=== PATIENT | male | born 1945 | race Caucasian/White ===

== ENCOUNTER 2017-07-10 16:13 | Inpatient (IN) | payer OTHER, MEDICARE ==
[~2017-07-10] VITALS: Ht 182.9 cm; Wt 68.0 kg
[~2017-07-10 16:13] MED LIST: CLONAZEPAM1 MG PO; COZAAR 50MG TAB50 MG PO; GLIPIZIDE ER5 M1 PO; LANTUS100 U/ML SC; LIDODERM 5% PAT1 PAT TOP; LIPITOR40 M1 PO; MELOXICAM15 MG PO; METFORMIN HCL500 MG PO; MIRALAX17 GM PO; MIRTAZAPINE15 MG PO; MORPHINE SULFAT45 MG PO; NEURONTIN300 MG PO; NICODERM C7 MG/24 HR PO; NORVASC 5MG TAB5 MG PO; NOVOLOG100 U/ML SC; OMEPRAZOLE20 M2 PO; PANCRELIPASE PO; PRAZOSIN HYDROCH2 MG PO; REQUIP 0.5MG0.5 M1 PO; TEARS NATURALE15 ML OP; TOPROL XL50 MG PO; TRAZODONE HCL150 M1 PO
--- NOTE | 2017-07-10 17:10 | ED GENERAL ADULT ---
History of Present Illness General Chief Complaint: ETOH/Drug Related Complaint Stated Complaint: BIBA FOR DETOX Source: patient, old records, EMS Exam Limitations: poor historian, RELUCTANT HISTORIAN Vital Signs & Intake/Output Vital Signs & Intake/Output Vital Signs Date Time Temp Pulse Resp B/P B/P Pulse O2 O2 Flow FiO2 Mean Ox Delivery Rate 07/11 0818 98.0 07/11 0810 98.0 126 24 132/92 95 Nasal 2.0L Cannula 07/11 0800 98.0 126 24 132/92 07/11 0329 83 16 98 Nasal 2.0L Cannula 07/10 2307 97.4 108 20 133/88 99 Nasal 2.0L Cannula 07/10 1950 119/62 07/10 1924 20 98 Nasal 2.0L Cannula 07/10 1920 97.9 137 22 147/79 87 Room Air 07/10 1618 96.2 124 16 159/93 93 Room Air ED Intake and Output 07/11 0000 07/10 1200 Intake Total 240 Output Total Balance 240 Intake, Oral 240 Patient 150 lb Weight Weight Estimated Measurement Method Reconcile Medications Amylase/Lipase/Protease (Pancrelipase 20,000 94537 [id number] U-53459 U) (Unknown Strength) ECC 15,000 PO AC PANCREATITIS (Reported) 15,000 EC ON W10 Atorvastatin Calcium (Lipitor) 40 MG TABLET 1 TAB PO 5PM CHOLESTEROL ( Reported) Clonazepam 1 MG TABLET 1 TAB PO BID ANXIETY (Reported) Dextran/Hypromellose (Tears Naturale 15 Ml) 15 ML SAMMI 1 DRP OP 4 TIMES/DAY EYE (Reported) Gabapentin (Neurontin) 300 MG CAP 1 CAP PO QPM UNKNOWN (Reported) Glipizide 5 MG TABLET 1 TAB PO DAILY DIABETES (Reported) Lidocaine HCl (Lidoderm Patch) 5 % PAT 1 PAT TOP DAILY PAIN (Reported) may wear up to 12 hours Meloxicam 15 MG TABLET 1 TAB PO DAILY NSAID (Reported) Metformin Hydrochloride (Metformin HCl) 500 MG TAB 2 TAB PO DAILY DIABETES ( Reported) Mirtazapine 15 MG TABLET 1 TAB PO QPM SLEEP (Reported) Morphine Sulfate (Morphine Sulfate ER) 45 MG CPMP.24HR 1 TAB PO Q8 PAIN ( Reported) Nicotine (Nicoderm Cq) 7 MG/24 HR TDM 1 PAT PO DAILY SMOKING (Reported) Omeprazole 20 MG CAPSULE.DR 1 CAP PO DAILY GI (Reported) Polyethylene Glycol 3350 (Miralax) 17 GRAM/DOSE POWDER 17 GM PO DAILY CONSTIPATION (Reported) mix with water, juice, soda, coffee or tea Ropinirole Hydrochloride (Requip 0.5MG) 0.5 MG TABLET 1 TAB PO QPM RESTLESS LEG SYNDROME (Reported) TRAZODONE HCL (Trazodone HCl) 50 MG TABLET 1 TAB PO QPM DEPRESSION (Reported) RESTART IF THE BLOOD PRESSURE IS NORMAL Triage Note: biba from home for ?withdrawal from oxycodone and klonopin. pt prescribed both for pain and PTSD. ran out of both prescriptions and not able to refill until tuesday07/13/2017. per EMS pt reprots drinking a pint of 5 dollar alcohol prior to arrival. strong smell of etoh on pt's breath. pt awake with slurred speech. NAD. abrasion that has scabbed over noted to R knee. no other injuries noted. awaiting provider eval. Triage Nurses Notes Reviewed? yes HPI: Patient presents for evaluation of possible withdrawal. The patient himself is an extremely poor historian and is unable to provide coherent history. He does complain of left knee pain and thoughts of self-harm. When asked why he felt that way he states that one of his buddies did. It is unclear if this is a recent event or related to [place]. When asked why he came to the emergency department the patient stated "I don't know". He asked me to speak with his . (Mahnaz COFFMAN,Jorje Cherry) Allergies Coded Allergies: Iodinated Contrast- Oral and IV Dye (UNKNOWN 07/11/17) diphenhydramine (UNKNOWN 07/11/17) (Mani Villalta MD) Past History Travel History Traveled to [place] past 21 day No Medical History Any Pertinent Medical History? see below for history History of MRSA: No History of VRE: No History of CDIFF: No Surgical History Surgical History: non-contributory Psychosocial History Who do you live with Spouse Services at Home None What is your primary language Slovenian Tobacco Use: Current Daily Use Daily Tobacco Use Amount/Type: => 5 Cigarettes daily Family History Family History, If Any: FATHER MOTHER FH: diabetes mellitus Hx Contributory? No (Mahnaz COFFMAN,Jorje Cherry) Review of Systems Review of Systems Constitutional: Reports: no symptoms. EENTM: Reports: no symptoms. Respiratory: Reports: no symptoms. Cardiovascular: Reports: no symptoms. GI: Reports: no symptoms. Genitourinary: Reports: no symptoms. Musculoskeletal: Reports: see HPI. Skin: Reports: no symptoms. Neurological/Psychological: Reports: no symptoms. Hematologic/Endocrine: Reports: no symptoms. Immunologic/Allergic: Reports: no symptoms. All Other Systems: Reviewed and Negative (Mahnaz COFFMAN,Jorje Cherry) Physical Exam Physical Exam General Appearance: SEE BELOW Comments: Gen.: Well-nourished, well-developed, no acute respiratory distress. Generally cooperative but prone to angry outbursts. Head: Normocephalic, atraumatic. Eyes: Normal inspection bilaterally Ears: Normal inspection bilaterally Nose: Normal inspection Throat/mouth : Moist mucosa Neck: Supple, full range of motion, no goiter Heart: Regular rate and rhythm, no murmurs rubs or gallops Lungs: Clear to auscultation bilaterally with normal air entry Chest: Nontender, no signs of trauma Back: Normal range of motion Abdomen: Soft, nontender, nondistended, normal bowel sounds, no signs of trauma Extremities: Normal range of motion grossly, equal radial pulses, no cyanosis clubbing or edema, abrasions. To the right knee and otherwise small scattered abrasions of lower extremities without ecchymoses soft tissue swelling or other signs of trauma. Neurologic: Cranial nerves grossly intact, speech is dysarthric Skin: warm and dry Psychiatric: Calm, cooperative, no apparent delusions or hallucinations but patient's train of thought is difficult to follow Core Measures ACS in differential dx? No CVA/TIA Diagnosis: No Sepsis Present: No Sepsis Focused Exam Completed? No (Mahnaz COFFMAN,Jorje Cherry) Progress Differential Diagnoses I considered the following diagnoses in my evaluation of the patient: Trauma, intoxication, electrolyte abnormality, dehydration, hypoglycemia, Korsakoff's psychosis Plan of Care: Orders Procedure Date/time Status Regular Diet 07/11 B Active BASIC METABOLIC PANEL 07/11 0919 Active CIWA 07/11 0757 Active ED CRISIS PSYCH CONSULT 07/11 0537 Active Add-on Test (ER Only) 07/11 0525 Active Patient Safety Monitor 07/10 1932 Active TSH REFLEX 07/10 1722 Complete TOTAL TRIODOTHYROXINE 07/10 1722 Complete FREE T4 07/10 172 Complete Saline Lock 04/15 1710 Active URINE DRUG SCREEN FOR ER ONLY 07/10 1709 Complete URINALYSIS 07/10 1709 Complete TROPONIN LEVEL 07/10 1709 Complete ETHANOL 07/10 1709 Complete COMPREHENSIVE METABOLIC PANEL 07/10 1709 Complete CBC WITHOUT DIFFERENTIAL 07/10 1709 Complete EKG 07/10 1709 Active Current Medications Sig/Shawna Start time Last Medication Dose Stop Time Status Admin Gabapentin 300 MG QPM 07/10 230 UNVr 07/10 (Neurontin) 230 Mirtazapine 15 MG QPM 07/10 230 UNVr 07/10 (Remeron) 230 Trazodone HCl 50 MG QPM 07/10 230 UNVr 07/10 (Desyrel) 230 Clonazepam 1 MG BID 07/11 2251 UNVr 07/10 (Klonopin 1MG Tab) 07/17 2250 230 Laboratory Tests 07/11/17 0600: TSH &T3 &Free T4 Intrp Cancelled 07/10/178: Urine Opiates Screen 379, Methadone Screen 63, Barbiturate Screen < 60, Ur Phencyclidine Scrn < 6.00, Amphetamines Screen < 100, U Benzodiazepines Scrn 144 , Urine Cocaine Screen < 50, Urine Cannabis Screen 5.90, Urine Color YEL, Urine Clarity CLEAR, Urine pH 6.0, Ur Specific [place] 1.015, Urine Protein 30 H, Urine Ketones TRACE H, Urine Nitrite NEG, Urine Bilirubin NEG, Urine Urobilinogen 0.2, Ur Leukocyte Esterase NEG, Ur Microscopic SEDIMENT EXAMINED, Urine RBC RARE, Urine WBC 5-10 H, Ur Epithelial Cells RARE, Hyaline Casts FEW H, Granular Casts RARE H, Urine Mucus FEW, Urine Hemoglobin NEG, Urine Glucose NEG 07/10/17 172: Anion Gap 23 H, Estimated GFR > 60, BUN/Creatinine Ratio 8.8, Glucose 121 H, Calcium 10.1, Total Bilirubin 0.5, AST 48, ALT 37, Alkaline Phosphatase 77, Troponin I 0.02, Total Protein 7.9, Albumin 4.7, Globulin 3.2, Albumin/Globulin Ratio 1.5, Free T4 1.25, Total T3 0.88 L, TSH &T3 &Free T4 Intrp 0.178 L, CBC w Diff NO MAN DIFF REQ, RBC 5.23, MCV 91.4, MCH 30.1, MCHC 32.9 L, RDW 13.8, MPV 8.3, Gran % 67.8, Lymphocytes % 26.3, Monocytes % 4.1, Eosinophils % 1.4, Basophils % 0.4, Absolute Granulocytes 5.2, Absolute Lymphocytes 2.0, Absolute Monocytes 0.3, Absolute Eosinophils 0.1, Absolute Basophils 0, Serum Alcohol 372.0 Initial ED EKG: SINUS TACHYCARDIA WITH A HEART RATE OF 123 AND 2 pvcS, NONSPECIFIC st SEGMENT CHANGES LIKELY RELATED TO RATE. Prior EKG: changed (PRIOR ekg ESSENTIALLY NORMAL) Comments: 07/10/2017 7:18:13 PM patient signed out to Dr. Villalta at shift price changer. 07/10/2017 7:29:13 PM Patient's has presented to the emergency department and states that the patient has run out of his pain medications and was seen at the [facility] but could not be provided any additional medication because he has a history of medication abuse. He began drinking as a results of the lack of medications (he suffers from chronic leg and back pain). Although Prasanna's tries her best to manage his medications he does manage to get to them from time to time and take them INappropriately. I will advise Dr. Villalta of this new information. (Mahnaz COFFMAN,Jorje Cherry) Hand-Off Endorsed To: Jorje Alves DO Endorsed Time: 0700 Pending: consult, other (CIWA) (Ambar COFFMAN,Mani) Differential Diagnoses I considered the following diagnoses in my evaluation of the patient: (Jorje Alves DO) Departure Departure Disposition: STILL A PATIENT Condition: Stable Referrals: Shamar Trejo MD (PCP/Family) Departure Forms: Customer Survey General Discharge Information (Jorje Joya MD) Departure Clinical Impression Primary Impression: Alcohol intoxication Qualifiers: Complication of substance-induced condition: uncomplicated Qualified Code: F10.920 - Alcohol use, unspecified with intoxication, uncomplicated Secondary Impressions: Alcohol dependence with withdrawal, Chronic pain, Depression with suicidal ideation Comments 07/11/17 The patient was signed out to me by . He is pending evaluation by crisis. Admission Note Spoke With: Tracy Vasquez MD Documentation of Exam: Documentation of any treatments & extenuating circumstances including Concerns Regarding Discharge (functional status, medication knowledge or non-compliance, living conditions, etc.) that warrant an admission rather than observation: [The patient needs admission for Ativan protocol, crisis consultation] Patient CIWA score is 14 after he received benzodiazepines. He is severely tremulous. He also has an acute medical condition requiring further care and that he has an elevated anion gap and electrolyte derangement. (Jorje Alvse DO) Critical Care Note Critical Care Note Critical Care Time: non-applicable (Mahnaz COFFMAN,Jorje Cherry)
[2017-07-10 17:35] LABS: ABSOLUTE BASOPHIL COUNT 0 /CUMM (0.0-0.2); ABSOLUTE EOSINOPHIL COUNT 0.1 /CUMM (0.0-0.7); ABSOLUTE GRANULOCYTE CT 5.2 /CUMM (1.4-6.5); ABSOLUTE MONOCYTE COUNT 0.3 /CUMM (0.10-0.60); BASOPHIL % 0.4 % (0.0-2.0); EOSINOPHIL % 1.4 % (0-5); GRANULOCYTE % 67.8 % (42.2-75.2); HEMATOCRIT 47.8 % (42-52); MEAN CORPUSCULAR HGB 30.1 PG (27.0-31.0); MEAN CORPUSCULAR HGB CONC 32.9 G/DL (33.0-37.0); MEAN CORPUSCULAR VOLUME 91.4 FL (80.0-94.0); MEAN PLATELET VOLUME 8.3 FL (7.4-10.4); PLATELET COUNT 142 /CUMM (130-400); RBC DISTRIBUTION WIDTH 13.8 % (11.5-14.5); RED BLOOD CELL CT 5.23 /CUMM (4.70-6.10); WHITE BLOOD CELL COUNT 7.7 /CUMM (4.8-10.8)
--- NOTE | 2017-07-10 18:24 | RADIOLOGY REPORT ---
EXAMINATION: XR PORTABLE CHEST CLINICAL INFORMATION: Aspiration. COMPARISON: Chest x-ray 04/07/2014 TECHNIQUE: Portable frontal view of the chest was obtained. 6:02 PM FINDINGS: The right lung base is not included in the study. There is emphysematous hyperlucency of lungs. There is no acute infiltrate. No pulmonary vascular congestion. The cardiac and the mediastinal contours are normal. There are vascular wall calcifications of the thoracic aortic arch. IMPRESSION: No acute abnormality of the chest.
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
[2017-07-11 08:00] VITALS: BP 132/92
[2017-07-11 10:00] VITALS: BP 134/88
--- NOTE | 2017-07-11 10:04 | History & Physical ---
Joya COFFMAN,[facility] 07/11/17 1003: General Information and HPI MD Statement: I have seen and personally examined ANTHONY DA SILVA and documented this H&P. The patient is a 72 year old M who presented with a patient stated chief complaint of Chornic Pain. Source of Information: patient, family, old records Exam Limitations: no limitations, clinical condition History of Present Illness: Mr Da Silva is a 72-year-old male with past medical history of hypertension, bipolar disorder, posttraumatic stress disorder (normally treated in [place] hospital ), status post left hip girdlestone procedure myocardial infarction, chronic pancreatitis, is brought in by ambulance on 07/10/2017 after being prompted by his to be brought in following an acute binge drinking episode. Some of the clinical history was obtained from the patient's Chelsey. It was reported by patient's that he did run out of his medications for anxiety and pain. The [facility] was not in a position to refil medications prior to and so the patient began drinking alcohol for pain relief. States that he had approximately 3 pints of madhav over the course of the weekend. During the time of our clinical interaction the patient was alert and oriented 3. He was able to provide some details of his admission however was unable to articulate the reason why he came to [facility].. States that since his run out of pain medications he's continued to feel pain in his left hip area. Described as a 10 out of 10 in severity. Described as dull, sharp, throbbing and piercing pain. States that pain only responded well to by mouth oxycodone medications which he was taking 20 mg 3 times a day. Patient denied any fever, chills or vomiting. Did endorse some nausea but no vomiting. He denied any abdominal pain or abdominal discomfort. Did state that he has not had a bowel movement in a few days. Denied any dysuria. Allergies/Medications Allergies: Coded Allergies: Iodinated Contrast- Oral and IV Dye (UNKNOWN 07/11/17) diphenhydramine (UNKNOWN 07/11/17) Home Med list Amylase/Lipase/Protease (Pancrelipase 20,000 64722 U-22040 U-55309 U) (Unknown Strength) ECC 15,000 PO AC PANCREATITIS (Reported) 15,000 EC ON W10 Atorvastatin Calcium (Lipitor) 40 MG TABLET 1 TAB PO 5PM CHOLESTEROL ( Reported) Clonazepam 1 MG TABLET 1 TAB PO BID ANXIETY (Reported) Dextran/Hypromellose (Tears Naturale 15 Ml) 15 ML SAMMI 1 DRP OP 4 TIMES/DAY EYE (Reported) Glipizide 5 MG TABLET 1 TAB PO DAILY DIABETES (Reported) Lidocaine HCl (Lidoderm Patch) 5 % PAT 1 PAT TOP DAILY PAIN (Reported) may wear up to 12 hours Meloxicam 15 MG TABLET 1 TAB PO DAILY NSAID (Reported) Metformin Hydrochloride (Metformin HCl) 500 MG TAB 2 TAB PO DAILY DIABETES ( Reported) Nicotine (Nicoderm Cq) 7 MG/24 HR TDM 1 PAT PO DAILY SMOKING (Reported) Omeprazole 20 MG CAPSULE.DR 1 CAP PO DAILY GI (Reported) Polyethylene Glycol 3350 (Miralax) 17 GRAM/DOSE POWDER 17 GM PO DAILY CONSTIPATION (Reported) mix with water, juice, soda, coffee or tea Ropinirole Hydrochloride (Requip 0.5MG) 0.5 MG TABLET 1 TAB PO QPM RESTLESS LEG SYNDROME (Reported) Trazodone HCl 150 MG TABLET 1 TAB PO QPM PRN Sleep (Reported) Can take up to 150 mg Compliance With Home Meds: POOR Past History Travel History Traveled to [place] past 21 day No Medical History History of MRSA: No History of VRE: No History of CDIFF: No Isolation History: Standard Surgical History Surgical History: non-contributory Past Family/Social History Family History Relations & Conditions if any FATHER MOTHER FH: diabetes mellitus Psychosocial History Services at Home: None Review of Systems Review of Systems Constitutional: Reports: see HPI. Exam & Diagnostic Data Last 24 Hrs of Vital Signs/I&O Vital Signs Date Time Temp Pulse Resp B/P B/P Pulse O2 O2 Flow FiO2 Mean Ox Delivery Rate 07/11 1220 98.4 134 22 154/76 92 Room Air 07/11 1000 97.8 102 20 134/88 07/11 0930 97.8 102 20 134/88 96 Nasal 2.0L Cannula 07/11 0818 98.0 07/11 0810 98.0 126 24 132/92 95 Nasal 2.0L Cannula 07/11 0800 98.0 126 24 132/92 07/11 0329 83 16 98 Nasal 2.0L Cannula 07/10 2307 97.4 108 20 133/88 99 Nasal 2.0L Cannula 07/10 1951 119/62 04/15 1925 20 98 Nasal 2.0L Cannula 07/10 1920 97.9 137 22 147/79 87 Room Air 07/10 1618 96.2 124 16 159/93 93 Room Air Intake & Output 07/11 1600 07/11 0800 07/11 0000 Intake Total 240 Output Total Balance 240 Intake, Oral 240 Patient 68.039 kg Weight Weight Estimated Measurement Method Physical Exam General Appearance Alert, Oriented X3, Cooperative, Dry mucous membranes Skin Temp/Moisture Exam: Warm/Dry Sepsis Skin Exam (color): Normal for Ethnicity HEENT Atraumatic, PERRLA, EOMI Neck Supple Cardiovascular Regular Rate, Normal S1, Normal S2 Lungs Clear to Auscultation Abdomen Normal Bowel Sounds, Soft, Tenderess noted with deep palpation. No rebound. Neurological Normal Gait, Normal Speech, Cranial Nerves 3-12 NL, Limited movement in Left lower Extremity. RLE: 5/5. Extremities No Clubbing, No Cyanosis, No Edema Vascular Normal Pulses Last 24 Hrs of Labs/Ayaz: Laboratory Tests 07/11/17 1100: Anion Gap 15, Estimated GFR > 60, BUN/Creatinine Ratio 16.3, Glucose 90, Calcium 9.0, Magnesium 1.4 L 07/11/17 0600: TSH &T3 &Free T4 Intrp Cancelled 07/10/178: Urine Opiates Screen 379, Methadone Screen 63, Barbiturate Screen < 60, Ur Phencyclidine Scrn < 6.00, Amphetamines Screen < 100, U Benzodiazepines Scrn 144 , Urine Cocaine Screen < 50, Urine Cannabis Screen 5.90, Urine Color YEL, Urine Clarity CLEAR, Urine pH 6.0, Ur Specific [place] 1.015, Urine Protein 30 H, Urine Ketones TRACE H, Urine Nitrite NEG, Urine Bilirubin NEG, Urine Urobilinogen 0.2, Ur Leukocyte Esterase NEG, Ur Microscopic SEDIMENT EXAMINED, Urine RBC RARE, Urine WBC 5-10 H, Ur Epithelial Cells RARE, Hyaline Casts FEW H, Granular Casts RARE H, Urine Mucus FEW, Urine Hemoglobin NEG, Urine Glucose NEG 07/10/17 1722: Anion Gap 23 H, Estimated GFR > 60, BUN/Creatinine Ratio 8.8, Glucose 121 H, Calcium 10.1, Total Bilirubin 0.5, AST 48, ALT 37, Alkaline Phosphatase 77, Troponin I 0.02, Total Protein 7.9, Albumin 4.7, Globulin 3.2, Albumin/Globulin Ratio 1.5, Free T4 1.25, Total T3 0.88 L, TSH &T3 &Free T4 Intrp 0.178 L, CBC w Diff NO MAN DIFF REQ, RBC 5.23, MCV 91.4, MCH 30.1, MCHC 32.9 L, RDW 13.8, MPV 8.3, Gran % 67.8, Lymphocytes % 26.3, Monocytes % 4.1, Eosinophils % 1.4, Basophils % 0.4, Absolute Granulocytes 5.2, Absolute Lymphocytes 2.0, Absolute Monocytes 0.3, Absolute Eosinophils 0.1, Absolute Basophils 0, Serum Alcohol 372.0 Assessment/Plan Assessment: Mr Da Silva is a 72-year-old male with past medical history of hypertension, bipolar disorder, posttraumatic stress disorder treated in [facility], status post left hip partial hip replacement in July 2013 and total hip replacement surgery in January 2009, myocardial infarction, chronic pancreatitis, is brought in by ambulance on 07/10/2017 after being prompted by his to be brought in following an acute binge drinking episode. Alcohol level was 372. Following initial stabilization at the emergency department he will subsequently be admitted to the Gen. medical service for the following problems. #Acute alcohol withdrawal. #History of diabetes #History of PTSD. #History of anxiety. #History of chronic pain. #Generalized deconditioning. #Constipation Admit the patient to general medicine. CIWA as per protocol. Last CIWA 14 Begin by mouth Ativan 2 mg every 6. Taper down not to exceed 20% in a 24 hour period, if CIWA lower and Vital signs stable. Maintain aspiration precautions. Finger sticks TID/HS at bedtime. NovoLog sliding scale. If sugars remain uncontrolled will may consider addition of Levemir. HB1AC Monitor BEP and CBC. Consider psych consultation in a.m. Consider PT consultation in a.m (althougth patient is wheelchair-bound he is able to transfer weight with the use of walker.) Bowel regimen with senna. Obtain records from [facility]. DVT prophylaxis with Lovenox. MVI/Thiamine/Vit D Patient is a full code. As Ranked By This Provider Problem List: 1. Alcohol dependence with withdrawal 2. Chronic pain 3. HTN (hypertension) 4. Anxiety Core Measures/Misc (12/12) Acute Coronary Syndrome ACS Diagnosis: No Congestive Heart Failure Congestive Heart Failure Diagnosis No Cerebrovascular Accident CVA/TIA Diagnosis: No VTE (View Protocol) VTE Risk Factors Age>40 No Mechanical VTE Prophylaxis d/t N/A MechProphylax Ordered No VTE Pharm Prophylaxis d/t NA PharmProphylax ordered Sepsis (View protocol) Sepsis Present: No Keven Machado MD 07/11/17 2778: Attending MD Review Statement Attending Statement Attending MD Statement: examined this patient, discuss w/resident/PA/ORNAMENTAL IRONWORKING SUPERVISOR, agreed w/resident/PA/ORNAMENTAL IRONWORKING SUPERVISOR, reviewed EMR data (avail), reviewed images, amended to note Attending Assessment/Plan: The patient is a 72 yo male with h/o HTN, bipolar disorder, PTSD (seen at [place]- ? Dr. Sherman), CAD (h/o MT), chronic pancreatitis, h/o left hip fx, chronic pain ( previously seen at [place] in [place]) who presented in the [facility] on 07/10 after acute drinking binge at urging of his . The patient had been on chronic benzo (Klonopin) [facility] and he had run out of these. stated his drinking had increased after he ran out of meds. He stated that they would no longer prescribe meds for him as they wanted him to go into rehab. 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 He describes pain in his left hip area, however has had diffuse pain. He denied any fever, chills, or abdominal pain (some nausea). He had been taking oxycodone 20 mg tid. Physical Exam: VS: T 98.4, P 102-134, R 22, BP 154/76, PO 92% HEENT: eyes- PERRLA, EOMI christine- dry mucosa w/o lesions Neck: no JVD or bruits. Chest: clear Cor: tachy, reg, nl S1, S2 w/o murm Abd Bs_, soft, NT, - HSM Ext: no edema, pulses good and sensory intact. Neuro: alert & oriented x 2, non-focal exam, + tremor. Labs/Tests- as above. Impression/Plan: #Alcohol Dependence and Withdrawal/DT's- patient with BAL 372 on presentation. Is on chronic Klonopin therapy at home, however [facility]. Plan: Admit to general medicine. CIWA/Ativan/MVI/thiamine/vit D. Social Service/Psych consults. #Bipolar/Depression/PTSD/Anxiety- patient is followed at [facility]. Plan: [facility] Psych consult here. Continue Trazodone & Remeron. #H/O Chronic Pain- has not been able to see pain specialist at [place] recently per patient. Plan: The patient was advised we will get information [facility]. Continue Gabapentin and use Tramadol as strongest pain med. Lidoderm Patch. #Benzo Dependence- the patient has been on Klonopin 1 mg bid x long time. Plan: Continue Klonopin and will speak with [facility]. #DM2- on Glipizide. Plan; Check glucoscans and sliding scale insulin.
[2017-07-11 12:20] VITALS: BP 154/76
[2017-07-11 16:00] VITALS: BP 154/76
--- NOTE | 2017-07-11 18:18 | Admission Certification ---
Admission Certification Certification Statement - As attending physician, I certify that at the time of - admission, based on clinical presentation, severity of - symptoms, need for further diagnostic testing and - therapeutic interventions, and risk of adverse outcomes - without in-hospital treatment, in my clinical assessment, - this patient requires an acute hospital stay for a minimum - of two nights or longer. I have also considered psychsocial - factors such as support system, advanced age, financial - issues, cognitive issues, and failed out-patient treatments, - past re-admission history, safety of patient, and lack of - compliance as applicable. Specific rationale supporting this admission is: The patient presented with acute intoxication and needs admission for alcohol and benzo withdrawal. Needs po/IV Ativan, MVI, thiamine, etc. [facility] health and social care teacher and psych consultation (addiction, PTSD, etc.).
[2017-07-11 20:00] VITALS: BP 160/74
[2017-07-11 21:42] VITALS: BP 158/98
[2017-07-12 06:50] VITALS: BP 162/86
--- NOTE | 2017-07-12 07:35 | PN- Housestaff ---
See Addendum Subjective Follow-up For: Alcohol withdrawal Chronic pain Subjective: The patient was seen and examined. He moaning in pain asking for opiates only. Refusing Ativan which is scheduled for his alcohol withdrawal. Per , he took his oxycodone more often than what was originally prescribed therefore ran out of this medication at home. He is agitated, trying to move out of his bed, asking for opioids. Upon clinical evaluation, he does not seem to be in opioid withdrawal. He was started on his [employer]UE[employer] oxycodone 20 mg 3 times a day earlier today. Received extra 5 mg as he was in severe pain. He is tachycardic and mildly hypertensive. Review of Systems Constitutional: Denies: chills, diaphoresis, fever, malaise, weakness, unexplained weight loss. Objective Last 24 Hrs of Vital Signs/I&O Vital Signs Date Time Temp Pulse Resp B/P B/P Pulse O2 O2 Flow FiO2 Mean Ox Delivery Rate 07/12 0650 98.2 99 20 162/86 93 Room Air 07/11 2142 98.2 112 20 158/98 94 Room Air 07/11 2000 98.1 114 18 160/74 07/11 1600 97.6 88 22 154/76 07/11 1220 98.4 134 22 154/76 92 Room Air Intake & Output 07/12 1600 07/12 0800 07/12 0000 Intake Total 940 1350 Output Total 300 200 Balance 640 1150 Intake, IV 700 210 Intake, Oral 240 1140 Output, Urine 300 200 Physical Exam General Appearance: Moderate Distress Other Physical Findings: HEENT Atraumatic, PERRLA, EOMI Neck Supple Cardiovascular Regular Rate, Normal S1, Normal S2 Lungs Clear to Auscultation Abdomen Normal Bowel Sounds, Soft, Tenderess noted with deep palpation. No rebound. Neurological Normal Speech Extremities No Clubbing, No Cyanosis, No Edema Vascular Normal Pulses Current Medications: Current Medications Sig/Shawna Start time Last Medication Dose Route Stop Time Status Admin Atorvastatin Calcium 40 MG 5PM 07/11 1700 AC 07/11 PO 1730 Clonazepam 1 MG BID 07/10 2252 DC 07/11 PO 07/17 225 1000 Enoxaparin Sodium 40 MG DAILY@1300 07/11 1300 AC 07/11 SC 1730 Gabapentin 300 MG QPM 07/10 2300 DC 07/10 PO 2305 Insulin Aspart 0 AT BEDTIME 07/11 2100 AC SC Insulin Aspart 0 TIDAC 07/11 1700 AC 07/12 SC 0747 Lidocaine 1 PAT Q24H 07/12 1900 AC EXT Lidocaine 1 PAT DAILY 07/11 1630 DC 07/11 EXT 1846 Lorazepam 2 MG Q8 07/12 1400 AC PO Lorazepam 2 MG Q6 07/11 1200 DC 07/12 PO 0629 Lorazepam 0 Q1P PRN 07/11 1200 AC 07/11 IV 1608 Magnesium Sulfate 1 GM Q2H 07/11 1330 DC 07/11 Dextrose/Water 100 ML IV 07/11 1729 1903 Morphine Sulfate 2 MG Q4-6 PRN PRN 07/11 1630 DC 07/11 IV 1938 Morphine Sulfate 2 MG ONCE ONE 07/11 1600 DC 07/11 IV 07/11 1601 1729 Morphine Sulfate 2 MG Q6P PRN 07/11 1200 DC 07/11 IV 1559 Nicotine 7 MG DAILY 07/12 1051 AC TOP Omeprazole 20 MG DAILY AC 07/11 1046 AC 07/12 PO 0629 Oxycodone HCl 10 MG ONCE ONE 07/12 1115 DC 07/12 PO 07/12 1116 1118 Oxycodone HCl 20 MG TID PRN 07/12 1047 AC PO Oxycodone HCl 10 MG TID PRN 07/12 1030 DC 07/12 PO 1031 Oxycodone/ 1 TAB ONCE ONE 07/12 0745 DC 07/12 Acetaminophen PO 07/12 0746 0737 Oxycodone/ 1 TAB ONCE ONE 07/11 2115 DC 07/11 Acetaminophen PO 07/12 2115 2139 Trazodone HCl 100 MG ONCE ONE 07/11 2115 DC 07/11 PO 07/12 2115 2139 Trazodone HCl 50 MG QPM 07/11 2100 AC 07/11 PO 2028 Last 24 Hrs of Lab/Ayaz Results Last 24 Hrs of Labs/Mics: Laboratory Tests 07/12/17 0755: Anion Gap 11, Estimated GFR > 60, BUN/Creatinine Ratio 21.7, CBC w Diff NO MAN DIFF REQ, RBC 4.48 L, MCV 90.3, MCH 31.0, MCHC 34.4, RDW 13.1, MPV 9.0, Gran % 62.3, Lymphocytes % 22.9, Monocytes % 8.0, Eosinophils % 5.9 H, Basophils % 0.9 , Absolute Granulocytes 3.1, Absolute Lymphocytes 1.2, Absolute Monocytes 0.4, Absolute Eosinophils 0.3, Absolute Basophils 0 Assessment/Plan Assessment: This is a 72-year-old male past medical history significant for PTSD, bipolar disorder, hypertension, CAD, chronic pain, chronic pancreatitis, history of left fracture, to the hospital following binge drinking episode. Problem list/plan: #Alcohol withdrawal/dependence: #Agitation/unsafe ambulation: pain medications #H/O Chronic Pain: mg, stating he is in severe pain all over his body medications as an outpatient. For now given his severe pain will increase back up to the original days of 20 mg 4 times a day. #DM: #DVT prophylaxis: Subcutaneous Lovenox #CODE STATUS: Full Problem List: 1. Alcohol dependence with withdrawal 2. Bipolar disorder 3. Chronic pain Pain Ratin Pain Location: all over Pain Goal: Pain 4 or less Pain Plan: Increased pain med regimen Tomorrow's Labs & Rationales: CBC to monitor H&H BEP to monitor electrolytes
[2017-07-12 09:02] LABS: ABSOLUTE EOSINOPHIL COUNT 0.3 /CUMM (0.0-0.7); ABSOLUTE MONOCYTE COUNT 0.4 /CUMM (0.10-0.60); EOSINOPHIL % 5.9 % (0-5)
[2017-07-12 09:25] LABS: ABSOLUTE BASOPHIL COUNT 0 /CUMM (0.0-0.2); ABSOLUTE GRANULOCYTE CT 3.1 /CUMM (1.4-6.5); ABSOLUTE LYMPH COUNT 1.2 /CUMM (1.2-3.4); BASOPHIL % 0.9 % (0.0-2.0); GRANULOCYTE % 62.3 % (42.2-75.2); MEAN CORPUSCULAR HGB CONC 34.4 G/DL (33.0-37.0); MEAN CORPUSCULAR VOLUME 90.3 FL (80.0-94.0); PLATELET COUNT 106 /CUMM (130-400); RBC DISTRIBUTION WIDTH 13.1 % (11.5-14.5); RED BLOOD CELL CT 4.48 /CUMM (4.70-6.10)
[2017-07-12 09:28] LABS: HEMATOCRIT 40.4 % (42-52)
--- NOTE | 2017-07-12 11:12 | Cons- Psychiatry ---
Psychiatric Consult Date of Consult: 07/12/17 Reason for Consult: "ETOH" Reformulated as please assist with medication management History of Present Illness: 72 y.o. , domiciled male [place] from home with CC of withdrawal from opioids and benzodiazepines, and some concern for alcohol withdrawal. Per the triage note and H&P, the patient was unable to fill his oxycontin and clonazepam prescriptions at [facility], and started to drink alcohol last week to relieve pain and anxiety. He has a history of alcohol dependence and had stopped some time ago and had been abstinent for 5 years, per his report. The patient was seen in OPS/IOP in 1999 for PTSD, rule out panic d/o with agoraphobia, and for rule out antisocial P.D. He was hospitalized on [facility] inpatient psychiatry in June, for an unknown reason; the records have been purged. Allergies: Coded Allergies: Iodinated Contrast- Oral and IV Dye (UNKNOWN 07/11/17) diphenhydramine (UNKNOWN 07/11/17) Current Medications: Current Medications Sig/Shawna Start time Last Medication Dose Route Stop Time Status Admin Atorvastatin Calcium 40 MG 5PM 07/11 1700 AC 07/11 PO 1730 Clonazepam 1 MG BID 07/10 2252 DC 07/11 PO 07/17 2251 1000 Enoxaparin Sodium 40 MG DAILY@1300 07/11 1300 AC 07/11 SC 1730 Gabapentin 0 .STK-MED ONE 07/10 2304 CAN PO Gabapentin 300 MG QPM 07/10 2300 DC 07/10 PO 2305 Insulin Aspart 0 AT BEDTIME 07/11 2100 AC SC Insulin Aspart 0 TIDAC 07/11 1700 AC 07/12 SC 0747 Lidocaine 1 PAT Q24H 07/12 1900 AC EXT Lidocaine 1 PAT DAILY 07/11 1630 DC 07/11 EXT 1846 Lorazepam 2 MG Q8 07/12 1400 AC PO Lorazepam 2 MG Q6 07/11 1200 DC 07/12 PO 0629 Lorazepam 0 Q1P PRN 07/11 1200 AC 07/11 IV 1608 Magnesium Sulfate 1 GM Q2H 07/11 1330 DC 07/11 Dextrose/Water 100 ML IV 07/11 1729 1903 Mirtazapine 15 MG QPM 07/10 2300 DC 07/10 PO 2305 Morphine Sulfate 2 MG Q4-6 PRN PRN 07/11 1630 DC 07/11 IV 1938 Morphine Sulfate 2 MG ONCE ONE 07/11 1600 DC 07/11 IV 07/11 1601 1729 Morphine Sulfate 2 MG Q6P PRN 07/11 1200 DC 07/11 IV 1559 Omeprazole 20 MG DAILY AC 07/11 1046 AC 07/12 PO 0629 Oxycodone HCl 10 MG TID PRN 07/12 1030 AC 07/12 PO 1031 Oxycodone/ 1 TAB ONCE ONE 07/12 0745 DC 07/12 Acetaminophen PO 07/12 0746 0737 Oxycodone/ 1 TAB ONCE ONE 07/11 2115 DC 07/11 Acetaminophen PO 07/12 2115 2139 Trazodone HCl 100 MG ONCE ONE 07/11 2115 DC 07/11 PO 07/11 Trazodone HCl 50 MG QPM 07/11 2100 AC 07/11 PO 2028 Past History Past Medical History Neurological: Hx of LOC and head strike during fall, from a 08/19/1999 outpatient psychiatry note. Musculoskeletal: Hx of multiple Fx elbow, leg, collar bone, vertebra and knee. Psychiatric: alcohol dependence, chronic pain disorder, depression, insomnia, PTSD, and civilian Past Surgical History Surgical History: non-contributory Psychosocial History Strengths/Capabilities: Supportive spouse Physical Limitations (Interventions): Unknown at baseline, but currently needs assist X 2 for ambulation Psychiatric Treatment History Psych Treatment Psychiatric Treatment Yes Inpatient Treatment Yes Outpatient Treatment Yes Location of Treatment [facility] Reason for Treatment PTSD Anxiety Depression, history of hospitalization at [facility] in 2000 Opioid dependence, prescribed Benzodiazepine dependence, prescribed Diagnosis: Major depressive d/o with a history of psychiatry admission in 2000 Alcohol abuse PTSD, civilian and Anxiety Opioid dependence, prescribed Benzodiazepine dependence, prescribed Risk Factors: age (under 24/over 65), chronic/serious med cond., high anxiety/ distress, SA/MH hospitalized, substance abuse, male Substance Use/Abuse History Drug Use/Abuse Substances Used/Abused Yes Substance Used/Abused Alcohol First Use Not evaluated Last Used [employer] after 5 year abstinence How much used/taken See H&P How often Daily For how long Approx. one week. Substance Abuse Treatment Substance Abuse Treatment Past Substance Abuse [place] Yes Inpatient Treatment Yes (Unclear, but pt mentions detox) Location of Treatment [facility] Reason for Treatment Alcohol use d/o Assessment/Plan Mental Status Orientation: Person, Place, Situation Affect: Anxious, Depressed, Flat Speech: Hyper-verbal, Loud, Perseveration Neuro-vegetative: Sleep Disturbance Mental Status Exam: The patient is lying in his bed, alert, irritable, but calming as the interview progressed. He preseverates on c/o pain, indicating his left hip. He is oriented to person, place, month, day. He denies VH, but states that he has blurry vision in his left eye. He denies AH, but indiactes that he hears whistiling in his left ear, reporting that it has wax in it. His thought processes are perseverative, but mainly logical. He denies SI or HI, and denies a history of suicide attempt. [NOTE: The patient was admitted to inpatient psychiatry in 2005 for a suicide attempt by OD.] He endorses passive SI, without plan or intent, due to uncontrolled pain. He also reports a toothache, which is causing him pain. The patient reports a history of PTSD from service and also experiencing the accidental of a girlfriend, Marii, and the suicide by hanging of another, Linnette. He reports nightmares, but has not tried any pharmacological intervention. He reports he quit drinking for 5 years until this past week. Lab Results: Laboratory Tests 07/12 0755 Chemistry Sodium (137 - 145 mmol/L) 140 Potassium (3.5 - 5.1 mmol/L) 3.5 Chloride (98 - 107 mmol/L) 105 Carbon Dioxide (22 - 30 mmol/L) 25 Anion Gap (5 - 16) 11 BUN (9 - 20 mg/dL) 13 Creatinine (0.7 - 1.2 mg/dL) 0.6 L Estimated GFR (>60 ml/min) > 60 BUN/Creatinine Ratio (7 - 25 %) 21.7 Hematology CBC w Diff NO MAN DIFF REQ WBC (4.8 - 10.8 /CUMM) 5.0 RBC (4.70 - 6.10 /CUMM) 4.48 L Hgb (14.0 - 18.0 G/DL) 13.9 L Hct (42 - 52 %) 40.4 L MCV (80.0 - 94.0 FL) 90.3 MCH (27.0 - 31.0 PG) 31.0 MCHC (33.0 - 37.0 G/DL) 34.4 RDW (11.5 - 14.5 %) 13.1 Plt Count (130 - 400 /CUMM) 106 L MPV (7.4 - 10.4 FL) 9.0 Gran % (42.2 - 75.2 %) 62.3 Lymphocytes % (20.5 - 51.1 %) 22.9 Monocytes % (1.7 - 9.3 %) 8.0 Eosinophils % (0 - 5 %) 5.9 H Basophils % (0.0 - 2.0 %) 0.9 Absolute Granulocytes (1.4 - 6.5 /CUMM) 3.1 Absolute Lymphocytes (1.2 - 3.4 /CUMM) 1.2 Absolute Monocytes (0.10 - 0.60 /CUMM) 0.4 Absolute Eosinophils (0.0 - 0.7 /CUMM) 0.3 Absolute Basophils (0.0 - 0.2 /CUMM) 0 Diffential Diagnosis: Major depressive d/o with a history of hospitalization in 2000 Alcohol abuse PTSD, civilian and Anxiety Opioid dependence, prescribed Benzodiazepine dependence, prescribed Impression: The patient is detoxing from alcohol, which he used as a substitute for oxycontin and clonazepam, prescribed, which he had been unable to refill last week. He has not been drinking for more than a week, per his report, and we expect his detox to be within the normal time frame and, hopefully, uncomplicated. 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 He has had a trial on Paxil for depression and anxiety, and his reports it made him more anxious. We would suggest a trial on another SSRI or another class , such as SNRI, for management of anxiety and depression. Also, he reports nightmares but does not think he has had a trial on prazosin, which if there are no contraindications, might be started at 1 mg PO before bedtime. Risks, benefits and side effects have not been reviewed with the patient. Per the , Chelsey, , [facility] The cause of his pain is uncertain, but it may be related to a fall on his left hip. He is opposed to Suboxone, which was not discussed by this data analyst report writer today. The patient would benefit from outpatient psychiatry. Provisional Treatment Plan: 1. Continue alcohol benzo detox taper protocol, reducing the scheduled dosing by 20% daily, as long as CIWA scores are lowering and vital signs are WNL. Hold for respiratory depression or oversedation. Continue PRN lorazepam, per CIWA. 2. Please get the patient's psychiatry treatment records, including current medications. 3. Please evaluate the patient's c/o left ear clogging. 4. The patient is reporting toothache pain. 5. I have started thiamine 100 mg PO daily, folic acid 1 mg PO daily and multivitamin tab PO daily. 6. The patient will need to be referred to his provider at the [facility] in [place]. We will continue to follow along and may have other suggestions later. Thank you for this consult.
[2017-07-12 14:06] VITALS: BP 160/80
[2017-07-12 16:00] VITALS: BP 168/88
--- NOTE | 2017-07-12 17:37 | Event Note ---
Event Note Event Note: Tried to contact patient's Chelsey Gaytan to update her about the events today. Cell phone, not answering. Left a message at her home number.
[2017-07-12 20:31] VITALS: BP 182/106
[2017-07-12 21:45] VITALS: BP 182/106
[2017-07-13 05:58] VITALS: BP 160/88
--- NOTE | 2017-07-13 08:03 | PN- Housestaff ---
See Addendum Subjective Follow-up For: Alcohol withdrawal Chronic pain Subjective: The patient was seen and examined. He is resting comfortably, his pain is well- controlled on current management regimen. He denies any headache, dizziness, lightheadedness, nausea, vomiting, chest pain , shortness of breath, abdominal pain. Spoke patient's over the phone today, per patient's , PCP is refusing to prescribe further opioid pain medication for the patient and is suggesting for the patient to go on Suboxone however patient is refusing. CIWA much improved. Mildly tachycardic and hypertensive. Review of Systems Constitutional: Denies: chills, diaphoresis, fever, malaise, weakness, unexplained weight loss. Objective Last 24 Hrs of Vital Signs/I&O Vital Signs Date Time Temp Pulse Resp B/P B/P Pulse O2 O2 Flow FiO2 Mean Ox Delivery Rate 07/13 0558 98.2 103 20 160/88 92 Room Air 07/12 2145 98.2 112 20 182/106 91 Room Air 07/12 2031 98.2 117 18 182/106 91 07/12 1600 98.1 102 18 168/88 07/12 1600 98.1 102 18 168/88 95 Room Air Room Air 07/12 1406 98.1 100 20 160/80 93 Room Air Intake & Output 07/13 1600 07/13 0800 07/13 0000 Intake Total 480 Output Total 400 Balance 80 Intake, Oral 480 Output, Urine 400 Physical Exam General Appearance: Alert, Cooperative, No Acute Distress Other Physical Findings: HEENT Atraumatic, PERRLA, EOMI Neck Supple Cardiovascular Regular Rate, Normal S1, Normal S2 Lungs Clear to Auscultation Abdomen Normal Bowel Sounds, Soft, no tenderness Neurological Normal Speech Extremities No Clubbing, No Cyanosis, No Edema Vascular Normal Pulses Current Medications: Current Medications Sig/Shawna Start time Last Medication Dose Route Stop Time Status Admin Atorvastatin Calcium 40 MG 5PM 07/11 1700 AC 07/11 PO 1730 Enoxaparin Sodium 40 MG DAILY@1300 07/11 1300 AC 07/12 SC 1222 Folic Acid 1 MG DAILY 07/12 1306 AC PO Insulin Aspart 0 AT BEDTIME 07/11 2100 AC SC Insulin Aspart 0 TIDAC 07/11 1700 AC 07/12 SC 1223 Lidocaine 1 PAT Q24H 07/12 1900 AC 07/12 EXT 1730 Lorazepam 2 MG Q8 07/12 1400 DC PO Lorazepam 1.5 MG Q6 07/12 1200 AC 07/13 PO 0611 Lorazepam 2 MG Q6 07/11 1200 DC 07/12 PO 0629 Lorazepam 0 Q1P PRN 07/11 1200 AC 07/11 IV 1608 Multivitamins 1 TAB DAILY 07/12 1306 AC PO Nicotine 7 MG DAILY 07/12 1051 AC 07/12 TOP 1222 Omeprazole 20 MG DAILY AC 07/11 1046 AC 07/13 PO 0611 Oxycodone HCl 20 MG Q6-PRN PRN 07/12 1615 AC 07/13 PO 0611 Oxycodone HCl 5 MG ONCE ONE 07/12 1545 DC 07/12 PO 07/12 1546 1550 Oxycodone HCl 10 MG ONCE ONE 07/12 1115 DC 07/12 PO 07/12 1116 1118 Oxycodone HCl 20 MG TID PRN 07/12 1047 DC PO Oxycodone HCl 10 MG TID PRN 07/12 1030 DC 07/12 PO 1031 Oxycodone/ 1 TAB ONCE ONE 07/13 0340 DC 07/13 Acetaminophen PO 07/13 0341 0340 Oxycodone/ 1 TAB ONCE ONE 07/12 2200 DC 07/12 Acetaminophen PO 07/12 2201 2208 Patient Medication 1 ED ONE ONE 07/12 1645 DC Teaching ED 07/12 1646 Thiamine HCl 100 MG DAILY 07/12 1305 AC PO Trazodone HCl 50 MG QPM 07/11 2100 AC 07/12 PO 2145 Last 24 Hrs of Lab/Ayaz Results Last 24 Hrs of Labs/Mics: Laboratory Tests 07/13/17 0755: Anion Gap 12, Estimated GFR > 60, BUN/Creatinine Ratio 11.7, CBC w Diff NO MAN DIFF REQ, RBC 4.82, MCV 90.7, MCH 30.4, MCHC 33.6, RDW 13.3, MPV 9.2, Gran % 54.4, Lymphocytes % 29.6, Monocytes % 7.4, Eosinophils % 7.6 H, Basophils % 1.0 , Absolute Granulocytes 2.7, Absolute Lymphocytes 1.5, Absolute Monocytes 0.4, Absolute Eosinophils 0.4, Absolute Basophils 0 Assessment/Plan Assessment: This is a 72-year-old male past medical history significant for PTSD, bipolar disorder, hypertension, CAD, chronic pain, chronic pancreatitis, history of left fracture, to the hospital following binge drinking episode. Problem list/plan: #Alcohol withdrawal/dependence: #Agitation/unsafe ambulation: #H/O Chronic Pain: #DM: #DVT prophylaxis: Subcutaneous Lovenox #CODE STATUS: Full Problem List: 1. Alcohol dependence with withdrawal 2. Chronic pain Pain Ratin Pain Location: all over Pain Goal: Pain 4 or less Pain Plan: oxycodone 20 mg q6 prn Tomorrow's Labs & Rationales: None
[2017-07-13 09:39] LABS: ABSOLUTE BASOPHIL COUNT 0 /CUMM (0.0-0.2); ABSOLUTE EOSINOPHIL COUNT 0.4 /CUMM (0.0-0.7); ABSOLUTE GRANULOCYTE CT 2.7 /CUMM (1.4-6.5); ABSOLUTE LYMPH COUNT 1.5 /CUMM (1.2-3.4); ABSOLUTE MONOCYTE COUNT 0.4 /CUMM (0.10-0.60); EOSINOPHIL % 7.6 % (0-5); GRANULOCYTE % 54.4 % (42.2-75.2); HEMATOCRIT 43.7 % (42-52); MEAN CORPUSCULAR HGB 30.4 PG (27.0-31.0); MEAN CORPUSCULAR HGB CONC 33.6 G/DL (33.0-37.0); MEAN CORPUSCULAR VOLUME 90.7 FL (80.0-94.0); MEAN PLATELET VOLUME 9.2 FL (7.4-10.4); PLATELET COUNT 107 /CUMM (130-400); RBC DISTRIBUTION WIDTH 13.3 % (11.5-14.5); RED BLOOD CELL CT 4.82 /CUMM (4.70-6.10)
[2017-07-13 14:34] VITALS: BP 168/94
[2017-07-13] MEDS ORDERED: NORVASC10 M1 PO (18:56)
[2017-07-13] MEDS ORDERED: KLONOPIN0.5 M1 PO (18:57)
[2017-07-13] MEDS ORDERED: DULOXETINE HCL20 MG PO (19:00)
[2017-07-13] MEDS ORDERED: LIDODERM1 EACH TOP (19:03)
[2017-07-13] MEDS ORDERED: METOPROLOL TART25 M1 PO (19:05)
[2017-07-13] MEDS ORDERED: ROPINIROLE HCL0.5 MG PO (19:26)
[2017-07-13 20:54] VITALS: BP 170/110
[2017-07-13 23:55] VITALS: BP 174/106
[2017-07-14 06:33] VITALS: BP 134/64
--- NOTE | 2017-07-14 07:53 | PN- Housestaff ---
See Addendum Subjective Follow-up For: Alcohol withdrawal Chronic pain Subjective: The patient was seen and examined. present at bedside. He denies any headache, dizziness, lightheadedness, nausea, vomiting, chest pain, shortness of breath, abdominal pain. CIWA ranging 00-12, mostly scored for agitation. VSS. Review of Systems Constitutional: Denies: chills, diaphoresis, fever, malaise, weakness, unexplained weight loss. Objective Last 24 Hrs of Vital Signs/I&O Vital Signs Date Time Temp Pulse Resp B/P B/P Pulse O2 O2 Flow FiO2 Mean Ox Delivery Rate 07/14 0845 98.6 98 20 134/64 07/14 0845 98.6 98 20 134/64 07/14 0633 98.2 98 20 134/64 92 07/14 0100 100 170/110 07/13 2355 100 174/106 07/13 2054 98.2 119 20 170/110 92 Room Air 07/13 191 128 172/110 07/13 1910 128 172/110 07/13 1434 98.6 125 16 168/94 92 Room Air Intake & Output 07/14 1600 07/14 0800 07/14 0000 Intake Total 240 480 Output Total 800 Balance 240 -320 Intake, Oral 240 480 Output, Urine 800 Physical Exam General Appearance: Alert, Oriented X3, Cooperative, No Acute Distress Other Physical Findings: HEENT Atraumatic, PERRLA, EOMI Neck Supple Cardiovascular Regular Rate, Normal S1, Normal S2 Lungs Clear to Auscultation Abdomen Normal Bowel Sounds, Soft, no tenderness Neurological Normal Speech Extremities No Clubbing, No Cyanosis, No Edema Vascular Normal Pulses Current Medications: Current Medications Sig/Shawna Start time Last Medication Dose Route Stop Time Status Admin Amlodipine Besylate 10 MG DAILY 07/14 0900 AC 07/14 PO 0845 Amlodipine Besylate 5 MG ONCE ONE 07/14 0015 DC 07/14 PO 07/14 0016 0100 Amlodipine Besylate 5 MG ONCE ONE 07/13 1914 DC 07/13 PO 07/13 Amlodipine Besylate 10 MG DAILY 07/13 190 DC PO Amlodipine Besylate 5 MG DAILY 07/13 1899 DC PO Artificial Tears 2 GTT 4 TIMES/DAY 07/13 1830 AC 07/14 OPH 0845 Atorvastatin Calcium 40 MG 5PM 04/16 1700 AC 07/13 PO 1740 Clonidine 0.1 MG BID 07/13 2100 CAN PO Enoxaparin Sodium 40 MG DAILY@1300 07/11 1300 AC 07/13 SC 1326 Folic Acid 1 MG DAILY 07/12 1306 AC 07/14 PO 0844 Insulin Aspart 0 AT BEDTIME 07/11 2100 AC SC Insulin Aspart 0 TIDAC 07/11 1700 AC 07/14 SC 0853 Lidocaine 1 PAT Q24H 07/12 1900 AC 07/13 EXT 1854 Lorazepam 1 MG ONCE ONE 07/13 1830 DC 07/13 IV 07/13 1831 1851 Lorazepam 1 MG Q8 07/13 1400 AC 07/14 PO 0843 Lorazepam 0 Q1P PRN 07/11 1200 AC 07/14 IV 0700 Metoprolol Tartrate 37.5 MG BID 07/14 0900 AC 07/14 PO 0845 Metoprolol Tartrate 37.5 MG ONCE ONE 07/13 1900 DC 07/13 PO 07/13 1901 1910 Multivitamins 1 TAB DAILY 07/12 1306 AC 07/14 PO 0844 Nicotine 7 MG DAILY 07/12 1051 AC 07/14 TOP 0845 Omeprazole 20 MG DAILY AC 07/11 1046 AC 07/14 PO 0843 Oxycodone HCl 20 MG Q6-PRN PRN 07/12 1615 AC 07/14 PO 0853 Oxycodone/ 1 TAB ONCE ONE 07/13 2215 DC 07/13 Acetaminophen PO 07/13 2216 2207 Ropinirole HCl 0.25 MG BID 07/13 2100 AC 07/13 PO 2219 Thiamine HCl 100 MG DAILY 07/12 1305 AC 07/14 PO 0845 Trazodone HCl 50 MG QPM 07/11 2100 AC 07/13 PO 2108 Assessment/Plan Assessment: This is a 72-year-old male past medical history significant for PTSD, bipolar disorder, hypertension, CAD, chronic pain, chronic pancreatitis, history of left fracture, to the hospital following binge drinking episode. Problem list/plan: #Alcohol withdrawal/dependence: clonazepam. 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 Alcohol dependence with withdrawal 2. Chronic pain Pain Ratin Pain Location: all over Pain Goal: Pain 4 or less Pain Plan: oxycodone 20 mg q6 prn Tomorrow's Labs & Rationales: None
[2017-07-14] MEDS ORDERED: MINIPRESS2 M1 PO (09:36)
[2017-07-14 22:04] VITALS: BP 144/82
[2017-07-15 07:12] VITALS: BP 140/78
[2017-07-15 07:46] VITALS: BP 140/78
--- NOTE | 2017-07-15 08:08 | PN- Housestaff ---
Luana Campos 07/15/17 0808: Subjective Follow-up For: Alcohol withdrawal Chronic pain Subjective: The patient was seen and examined. Resting comfortabley. He denies any headache, dizziness, lightheadedness, nausea, vomiting, chest pain, shortness of breath, abdominal pain. VSS. Review of Systems Constitutional: Reports: no symptoms. Objective Last 24 Hrs of Vital Signs/I&O Vital Signs Date Time Temp Pulse Resp B/P B/P Pulse O2 O2 Flow FiO2 Mean Ox Delivery Rate 07/15 0746 92 140/78 07/15 0712 98.3 92 20 140/78 90 Intake & Output 07/15 1600 07/15 0800 07/15 0000 Intake Total 450 240 Output Total 400 Balance 50 240 Intake, Oral 450 240 Output, Urine 400 Physical Exam General Appearance: Alert, Oriented X3, Cooperative, No Acute Distress Other Physical Findings: HEENT Atraumatic, PERRLA, EOMI Neck Supple Cardiovascular Regular Rate, Normal S1, Normal S2 Lungs Clear to Auscultation Abdomen Normal Bowel Sounds, Soft, no tenderness Neurological Normal Speech Extremities No Clubbing, No Cyanosis, No Edema Vascular Normal Pulses Current Medications: Current Medications Sig/Shawna Start time Last Medication Dose Route Stop Time Status Admin Amlodipine Besylate 10 MG DAILY 07/14 0900 DCD 07/15 PO 0746 Artificial Tears 2 GTT 4 TIMES/DAY 07/13 1830 DCD 07/14 OPH 9 Aspirin Buffered 81 MG DAILY 07/15 1124 DCD 07/15 PO 1427 Atorvastatin Calcium 20 MG 5PM 07/15 1700 DCD PO Atorvastatin Calcium 40 MG 5PM 07/11 1700 DC 07/14 PO 1812 Dicyclomine HCl 20 MG Q6 07/15 1200 DCD 07/15 PO 1427 Docusate Sodium 100 MG DAILY 07/15 1125 DCD 07/15 PO 1314 Duloxetine HCl 40 MG BID 07/15 1126 DCD 07/15 PO 1427 Enoxaparin Sodium 40 MG DAILY@1300 07/11 1300 DCD 07/15 SC 1314 Finasteride 5 MG DAILY 07/15 1126 DCD 07/15 PO 1427 Folic Acid 1 MG DAILY 07/12 1306 DCD 07/15 PO 0746 Insulin Aspart 0 TIDAC 07/15 1200 CAN SC Insulin Aspart 0 AT BEDTIME 07/11 2100 DCD 07/14 SC 205 Insulin Aspart 0 TIDAC 07/11 1700 DCD 07/15 SC 1301 Lidocaine 1 PAT Q24H 07/12 1900 DCD 07/13 EXT 1854 Lorazepam 1 MG BID 07/14 2100 DCD 07/15 PO 0749 Lorazepam 0 Q1P PRN 07/11 1200 DC 07/15 IV 0324 Metoprolol Tartrate 37.5 MG BID 07/14 0900 DCD 07/15 PO 0749 Multivitamins 1 TAB DAILY 07/12 1306 DCD 07/15 PO 0746 Nicotine 7 MG DAILY 07/12 1051 DCD 07/15 TOP 0748 Omeprazole 20 MG DAILY AC 07/11 1046 DCD 07/14 PO 0843 Oxycodone HCl 20 MG Q6-PRN PRN 07/12 1615 DCD 07/15 PO 1019 Patient Medication 1 ED ONE 07/15 0000 NR Teaching ED 07/15 2359 Prazosin HCl 8 MG QPM 07/14 2100 DCD 07/14 PO 2057 Ropinirole HCl 0.25 MG BID 07/13 2100 DCD 07/15 PO 0747 Thiamine HCl 100 MG DAILY 07/12 1305 DCD 07/15 PO 0757 Trazodone HCl 150 MG QPM PRN 07/15 1130 CAN PO Trazodone HCl 50 MG QPM 07/11 2100 DCD 07/14 PO 2057 Assessment/Plan Assessment: This is a 72-year-old male past medical history significant for PTSD, bipolar disorder, hypertension, CAD, chronic pain, chronic pancreatitis, history of left fracture, to the hospital following binge drinking episode. Problem list/plan: #Alcohol withdrawal/dependence: #Agitation/unsafe ambulation: #H/O Chronic Pain: #DM: #PTSD: -Resume [employer] prazosin #DVT prophylaxis: Subcutaneous Lovenox #CODE STATUS: Full Problem List: 1. Alcohol dependence with withdrawal 2. Chronic pain Pain Ratin Pain Location: NA Pain Goal: Pain 4 or less Pain Plan: oxycodone 20 mg q6 prn Tomorrow's Labs & Rationales: Keven Briceno MD 07/15/17 1658: Attending Review Statement Attending Statement Attending MD Statement: examined this patient, discuss w/resident/PA/MARKETING OPERATIONS INTERN, agreed w/resident/PA/MARKETING OPERATIONS INTERN, discussed with family, reviewed EMR data (avail), discussed with nursing, discussed with case mgmt, amended to note Attending Assessment/Plan: The patient was seen and discussed with house staff, nursing, case management, psychiatry and his PCP at [facility] (Dr. Demetris Ordaz- [facility]). The patient wishes to not go on Suboxone and would prefer remaining on oxycodone and taper Klonopin. Dr. Ordaz is attempting to refer him to [facility] for re-evaluation of hip He will discuss benzos with his primary psychiatrist. The patient was given 5 days of oxycodone and will see Dr. Ordaz on Wednesday 07/19 at 11 am.
--- NOTE | 2017-07-15 10:00 | PN- Psychiatry ---
Assessment/Plan Impression: The patient is complaining of pain, team aware, and made a self-harm statement in frustration. He denies SI or HI during the visit. He said that he may as well be if he cannot get medication for his pain. I believe that he does not wish to harm himself. He will benefit from referral to his PCP at [facility] in [place], and, hopefully, a referral to pain management. I understand that the patient has an appt with the PCP on 07/19/17. He will need to see his psychiatrist at that facility within a week. The patient has had 4 mg of lorazepam in the last 24 hours, and the detox taper should be continued. Dosing frequency should not be longer than every 6 hours. CIWA scores are decreasing with the exception of one agitation event. VS are WNL for alcohol withdrawal. Suggestion: 1. Continue alcohol detox lorazepam taper at a daily reduction of 20%. Consider changing the current lorazepam 1 mg PO BID to lorazepam 0.5 mg PO q 6 hours. This change may reduce the demand for PRN lorazepam, and hasten the conclusion of the taper. 2. Continue daily thiamine, folate and MVI. 3. Referral to the patient's psychiatry provider at the [facility]. The patient is not suicidal, psychotic, nor delirious, and is clear for discharge from a psychiatry viewpoint. Psychiatry is signing off. Please reconsult if other psychiatric matters arise. Thank-you for this consult. Subjective Subjective: The patient is sitting up in bed, irritable, but mostly cooperative. He is oriented. He denies AH or VH, presents no archana delusions. He perseverates on his pain, and is wondering why the proposed operation for his leg at [facility] has not occurred. He denies suicidal or homicidal ideation twice during our brief encounter today. He endorses depression ("Call it 10 out of 10"), but denies hopelessness. He declines to answer more questions. Objective Last 24 Hrs of Vital Signs/I&O Vital Signs Date Time Temp Pulse Resp B/P B/P Pulse O2 O2 Flow FiO2 Mean Ox Delivery Rate 07/15 0746 92 140/78 07/15 0712 98.3 92 20 140/78 90 07/15 2203 98.4 96 20 144/82 93 Room Air 07/14 2058 98 134/64 07/14 2057 98 134/64 Intake & Output 07/15 1600 07/15 0800 07/15 0000 Intake Total 240 Output Total Balance 240 Intake, Oral 240 Physical Exam: Not performed Physical Exam General Appearance: alert, awake, anxious Neurologic/Psychiatric: awake, alert, oriented x 3 Current Medications: Current Medications Sig/Shawna Start time Last Medication Dose Route Stop Time Status Admin Amlodipine Besylate 10 MG DAILY 07/14 0900 AC 07/15 PO 0746 Artificial Tears 2 GTT 4 TIMES/DAY 07/13 1830 AC 07/14 OPH 2058 Atorvastatin Calcium 40 MG 5PM 07/11 1700 AC 07/14 PO 1812 Enoxaparin Sodium 40 MG DAILY@1300 07/11 1300 AC 07/13 SC 1326 Folic Acid 1 MG DAILY 07/12 1306 AC 07/15 PO 0746 Insulin Aspart 0 AT BEDTIME 07/11 2100 AC 07/14 SC 2058 Insulin Aspart 0 TIDAC 07/11 1700 AC 07/15 SC 0749 Lidocaine 1 PAT Q24H 07/12 1900 AC 07/13 EXT 1854 Lorazepam 1 MG BID 07/14 2100 AC 07/15 PO 0749 Lorazepam 0 Q1P PRN 07/11 1200 DC 07/15 IV 0324 Metoprolol Tartrate 37.5 MG BID 07/14 0900 AC 07/15 PO 0749 Multivitamins 1 TAB DAILY 07/12 1306 AC 07/15 PO 0746 Nicotine 7 MG DAILY 07/12 1051 AC 07/15 TOP 0748 Omeprazole 20 MG DAILY AC 07/11 1046 AC 07/14 PO 0843 Oxycodone HCl 5 MG ONCE ONE 07/14 1445 DC 07/14 PO 07/14 1446 1509 Oxycodone HCl 20 MG Q6-PRN PRN 07/12 1615 AC 07/15 PO 1019 Patient Medication 1 ED ONE ONE 07/14 194 DC Teaching ED 07/14 194 Prazosin HCl 8 MG QPM 07/14 2100 AC 07/14 PO 2057 Ropinirole HCl 0.25 MG BID 07/13 2100 AC 07/15 PO 0747 Thiamine HCl 100 MG DAILY 07/12 1305 AC 07/15 PO 0757 Trazodone HCl 50 MG QPM 07/11 2100 AC 07/14 PO 2057 Results Last 24 Hrs of Labs/Mics: Laboratory Tests 07/13 0755 Chemistry Sodium (137 - 145 mmol/L) 141 Potassium (3.5 - 5.1 mmol/L) 3.9 Chloride (98 - 107 mmol/L) 102 Carbon Dioxide (22 - 30 mmol/L) 27 Anion Gap (5 - 16) 12 BUN (9 - 20 mg/dL) 7 L Creatinine (0.7 - 1.2 mg/dL) 0.6 L Estimated GFR (>60 ml/min) > 60 BUN/Creatinine Ratio (7 - 25 %) 11.7 Hematology CBC w Diff NO MAN DIFF REQ WBC (4.8 - 10.8 /CUMM) 5.0 RBC (4.70 - 6.10 /CUMM) 4.82 Hgb (14.0 - 18.0 G/DL) 14.7 Hct (42 - 52 %) 43.7 MCV (80.0 - 94.0 FL) 90.7 MCH (27.0 - 31.0 PG) 30.4 MCHC (33.0 - 37.0 G/DL) 33.6 RDW (11.5 - 14.5 %) 13.3 Plt Count (130 - 400 /CUMM) 107 L MPV (7.4 - 10.4 FL) 9.2 Gran % (42.2 - 75.2 %) 54.4 Lymphocytes % (20.5 - 51.1 %) 29.6 Monocytes % (1.7 - 9.3 %) 7.4 Eosinophils % (0 - 5 %) 7.6 H Basophils % (0.0 - 2.0 %) 1.0 Absolute Granulocytes (1.4 - 6.5 /CUMM) 2.7 Absolute Lymphocytes (1.2 - 3.4 /CUMM) 1.5 Absolute Monocytes (0.10 - 0.60 /CUMM) 0.4 Absolute Eosinophils (0.0 - 0.7 /CUMM) 0.4 Absolute Basophils (0.0 - 0.2 /CUMM) 0
[2017-07-15] MEDS ORDERED: METFORMIN HCL500 M3 PO (11:18)
[2017-07-15] MEDS ORDERED: BARACLUDE0.5 MG PO (11:19)
[2017-07-15] MEDS ORDERED: PROSCAR5 M1 PO (11:19)
[2017-07-15] MEDS ORDERED: ASPIRIN EC81 M1 PO (11:20)
[2017-07-15] MEDS ORDERED: CREON DR 6,0001 EACH PO (11:20)
[2017-07-15] MEDS ORDERED: ATROVENT HFA12.9 GM (11:21)
[2017-07-15] MEDS ORDERED: CALCIUM600 M3 PO (11:22)
[2017-07-15] MEDS ORDERED: DICYCLOMINE HCL10 M1 PO (11:22)
[2017-07-15] MEDS ORDERED: STOOL SOFTENER50 MG PO (11:24)
[2017-07-15] MEDS ORDERED: OXYCODONE HCL20 M2 PO ×2 (11:29→11:39)
--- NOTE | 2017-07-15 11:32 | Patient Discharge Instructions ---
Discharge Instructions General Discharge Information You were seen/treated for: Alcohol withdrawal Special Instructions: -Please follow-up with your PCP within a week of discharge. -Please take your medications as instructed. -Please return to the hospital if your symptoms not improve/worsen. Diet Continue normal diet: Yes Recommended Diet: Diabetic Activity Additional ACTIVITY Info: As tolerated. Acute Coronary Syndrome Inclusion Criteria At DC or during hospital stay patient has or had the following: ACS DIAGNOSIS No Discharge Core Measures Meds if any: Prescribed or Continued at Discharge Meds if any: NOT Prescribed or Continued at Discharge Congestive Heart Failure Inclusion Criteria At DC or during hospital stay patient has or had the following: CHF DIAGNOSIS No Discharge Core Measures Meds if any: Prescribed or Continued at Discharge Meds if any: NOT Prescribed or Continued at Discharge Cerebrovascular accident Inclusion Criteria At DC or during hospital stay patient has or had the following: CVA/TIA Diagnosis No Discharge Core Measures Meds if any: Prescribed or Continued at Discharge Meds if any: NOT Prescribed or Continued at Discharge Venous thromboembolism Inclusion Criteria VTE Diagnosis No VTE Type NONE VTE Confirmed by (Test) NONE Discharge Core Measures - Per Current guidelines, there needs to be overlap - treatment for the first 5 days of Warfarin therapy. - If discharged on Warfarin prior to 5 days of - overlap therapy, the patient will need to be - assessed for post discharge needs including - *Post discharge parental anticoagulation - *Warfarin and/or parental anticoagulation education - *Follow up date to check INR post discharge At least 5 days overlap therapy as Inpatient No Meds if any: Prescribed or Continued at Discharge Note: Overlap Therapy is Warfarin and Anticoagulant Meds if any: NOT Prescribed or Continued at Discharge
[2017-07-15] MEDS ORDERED: ONE DAILY MULT1 EAC2 PO ×2 (11:39→14:12)
[2017-07-15] MEDS ORDERED: FOLIC ACID1 M1 PO ×2 (11:39→14:12)
[2017-07-15] MEDS ORDERED: VITAMIN B-1100 MG PO ×2 (11:39→14:12)
--- NOTE | 2017-07-17 17:20 | Discharge Summary ---
Visit Information Visit Dates Admission Date: 07/11/17 Discharge Date: 07/15/17 Hospital Course Course Attending Physician: Kevne Machado MD Primary Care Physician: [place] MA (Dr. Demetris Hebert [facility]). Shamar Trejo MD Consulting Request: Consulting Specialty: Psychiatry Hospital Course: The patient is a 72-year-old male with past medical history significant for hypertension, bipolar disorder, PTSD, CAD (history of NE), chronic pancreatitis, history of left hip fracture, chronic pain who was brought to the hospital by his after an episode of binge drinking. The patient had been on chronic benzos (Klonopin)and pain medication(oxycodone). Per patient and his , he took his oxycodone more often than prescribed and ran out of medication. He was being tapered off of oxycodone by his primary care, dose was decreased from 20mg, 4 times a day to 20mg, 3 times a day. However because of pain, the patient continued to take 20mg,4 times a day. After running out of his pain medication, he started drinking alcohol to help reduce his pain. Physical exam on admission: Vital Signs Date Time Temp Pulse Resp B/P B/P Pulse O2 O2 Flow FiO2 Mean Ox Delivery Rate 07/11 1220 98.4 134 22 154/76 92 Room Air 07/11 1000 97.8 102 20 134/88 07/11 0930 97.8 102 20 134/88 96 Nasal 2.0L Cannula 07/11 0818 98.0 07/11 0810 98.0 126 24 132/92 95 Nasal 2.0L Cannula 07/11 0800 98.0 126 24 132/92 07/11 0329 83 16 98 Nasal 2.0L Cannula 07/10 2307 97.4 108 20 133/88 99 Nasal 2.0L Cannula 07/10 1950 119/62 07/10 192 20 98 Nasal 2.0L Cannula 07/10 1920 97.9 137 22 147/79 87 Room Air 07/10 1618 96.2 124 16 159/93 93 Room Air General Appearance Alert, Oriented X3, Cooperative, Dry mucous membranes Skin Temp/Moisture Exam: Warm/Dry Sepsis Skin Exam (color): Normal for Ethnicity HEENT Atraumatic, PERRLA, EOMI Neck Supple Cardiovascular Regular Rate, Normal S1, Normal S2 Lungs Clear to Auscultation Abdomen Normal Bowel Sounds, Soft, Tenderess noted with deep palpation. No rebound. Neurological Normal Gait, Normal Speech, Cranial Nerves 3-12 NL, Limited movement in Left lower Extremity. RLE: 5/5. Extremities No Clubbing, No Cyanosis, No Edema Vascular Normal Pulses Pertinent Lab and diagnostic data on admission: 07/11/17 1100: Anion Gap 15, Estimated GFR > 60, BUN/Creatinine Ratio 16.3, Glucose 90, Calcium 9.0, Magnesium 1.4 L 07/11/17 0600: TSH &T3 &Free T4 Intrp Cancelled 07/10/17 2208: Urine Opiates Screen 379, Methadone Screen 63, Barbiturate Screen < 60, Ur Phencyclidine Scrn < 6.00, Amphetamines Screen < 100, U Benzodiazepines Scrn 144 , Urine Cocaine Screen < 50, Urine Cannabis Screen 5.90, Urine Color YEL, Urine Clarity CLEAR, Urine pH 6.0, Ur Specific [place] 1.015, Urine Protein 30 H, Urine Ketones TRACE H, Urine Nitrite NEG, Urine Bilirubin NEG, Urine Urobilinogen 0.2, Ur Leukocyte Esterase NEG, Ur Microscopic SEDIMENT EXAMINED, Urine RBC RARE, Urine WBC 5-10 H, Ur Epithelial Cells RARE, Hyaline Casts FEW H, Granular Casts RARE H, Urine Mucus FEW, Urine Hemoglobin NEG, Urine Glucose NEG 07/10/17 1722: Anion Gap 23 H, Estimated GFR > 60, BUN/Creatinine Ratio 8.8, Glucose 121 H, Calcium 10.1, Total Bilirubin 0.5, AST 48, ALT 37, Alkaline Phosphatase 77, Troponin I 0.02, Total Protein 7.9, Albumin 4.7, Globulin 3.2, Albumin/Globulin Ratio 1.5, Free T4 1.25, Total T3 0.88 L, TSH &T3 &Free T4 Intrp 0.178 L, CBC w Diff NO MAN DIFF REQ, RBC 5.23, MCV 91.4, MCH 30.1, MCHC 32.9 L, RDW 13.8, MPV 8.3, Gran % 67.8, Lymphocytes % 26.3, Monocytes % 4.1, Eosinophils % 1.4, Basophils % 0.4, Absolute Granulocytes 5.2, Absolute Lymphocytes 2.0, Absolute Monocytes 0.3, Absolute Eosinophils 0.1, Absolute Basophils 0, Serum Alcohol 372.0 The following problems were addressed during the course of his hospital stay: #Alcohol withdrawal/dependence: Was started on ativan per YUE and scheduled ativan taper until the ativan dose was tapered down to equivalant to home dose of clonazepam. Was seen by psych. Was started on multivitamins, thiamine and folic acid. #Agitation/unsafe ambulation: Had occasional episode of agitation and unsafe ambulation, required sitter monitor. #H/O Chronic Pain: The patient is on chronic opioids with tolerance for chronic pain. During his hopspital stay he was experiencing severe pain which was not able to be managed with his latest dose of oxycodone 20 mg TID. We had to increa the frequency to his dose prior to taper which was 20 mg QID. He needs close follow up with PCP and pain managment as an outpatint and hopefully be able to try alternative to opioids pain medication regimen/approach. The patient was given 5 days of oxycodone and will see Dr. Ordaz on Wednesday 07/19 at 11 am. #DM: On glipiride, metformin at home. Metformin held during hospital stay, managed on INS SS and lateron glipiride equivalant added. #PTSD: Maintaied on SHIFT MGR prazosin #DVT prophylaxis: Subcutaneous Lovenox #CODE STATUS: Full code Allergies: Coded Allergies: Iodinated Contrast- Oral and IV Dye (UNKNOWN 07/11/17) diphenhydramine (UNKNOWN 07/11/17) Disposition Summary Disposition Principal Diagnosis: Alcohol withdrawal Additional Diagnosis: Chronic pain Discharge Disposition: home or self care Discharge Instructions General Discharge Information Code Status: Full Code Patient's Diet: Diabetic Patient's Activity: As tolerated Follow-Up Instructions/Appts: -Please follow-up with your PCP within a week of discharge. -Please take your medications as instructed. -Please return to the hospital if your symptoms not improve/worsen. Medications at Discharge Discharge Medications: Continue taking these medications: Atorvastatin Calcium (Lipitor) 40 MG TABLET 0.5 Tablet ORAL DAILY Comments: Last Taken:07/15/17 Time:1700 Omeprazole (Omeprazole) 20 MG CAPSULE. 1 Capsule ORAL DAILY Qty = 30 Comments: Last Taken:07/14/17 Time:0843 Trazodone HCl (Trazodone HCl) 150 MG TABLET 1 Tablet ORAL Every night as needed for Sleep Instructions: Can take up to 150 mg Comments: Last Taken:07/14/17 Time:2057 Glipizide (Glipizide ER) 5 MG TAB.ER.24 1 Tablet ORAL DAILY Comments: NOT GIVEN Amlodipine Besylate (Norvasc) 10 MG TABLET 1 Tablet ORAL DAILY Instructions: hold if BP is less than 120/80 Comments: Last Taken: 07/15/17 Time: 745 Clonazepam (Klonopin) 0.5 MG TABLET 1 Tablet ORAL TWICE DAILY Qty = 30 Comments: NOT GIVEN Duloxetine HCl (Duloxetine HCl) 20 MG CAPSULE. 2 Capsule ORAL TWICE DAILY Comments: Last Taken:07/15/17 Time:1426 Lidocaine (Lidoderm) 5 % ADH..PATCH 2 Patch On the skin DAILY Instructions: may wear up to 12 hours Comments: Last Taken:07/13/17 Time:1853 Metoprolol Tartrate (Metoprolol Tartrate) 25 MG TABLET 1.5 Tablet ORAL DAILY Comments: Last Taken:07/15/17 Time:748 Ropinirole HCl (Ropinirole HCl) 0.5 MG TABLET 0.5 Tablet ORAL TWICE DAILY Instructions: give at 4pm and 8 pm daily Comments: Last Taken:07/15/17 Time:746 Prazosin HCl (Minipress) 2 MG CAPSULE 4 Capsule ORAL Every night Comments: Last Taken:07/14/17 Time:2057 Metformin HCl (Metformin HCl) 500 MG TABLET 2 Tablet ORAL DAILY Qty = 30 Comments: NOT GIVEN Finasteride (Proscar) 5 MG TABLET 1 Tablet ORAL DAILY Qty = 30 Comments: Last Taken:07/15/17 Time:1426 Entecavir (Baraclude) 0.5 MG TABLET 1 Tablet ORAL DAILY Qty = 30 Comments: NOT GIVEN Lipase/Protease/Amylase (Omer Herring 6,000 Units Capsule) [id number] CAPSULE. 3 Capsule ORAL THREE TIMES DAILY Days = 30 Instructions: With meals Comments: NOT GIVEN Aspirin (Ecotrin*) 81 MG TABLET. 1 Tablet ORAL DAILY Days = 30 Comments: Last Taken: 07/15/17 Time:1426 Ipratropium Williams (Atrovent Hfa) 17 MCG/ACTUATION HFA.AER.AD 2 Puff EVERY SIX HOURS Days = 30 Instructions: NOT GIVEN Calcium (Elemental-Fr Calcarb) (Calcium) 600 MG CALCIUM (1,500 MG) TABLET 2 Tablet ORAL DAILY Days = 30 Comments: NOT GIVEN Dicyclomine HCl (Dicyclomine HCl) 10 MG CAPSULE 2 Capsule ORAL EVERY SIX HOURS Days = 30 Comments: Last Taken:07/15/17 Time:1427 Docusate Sodium (Stool Softener) 50 MG CAPSULE 1 Tablet ORAL TWICE DAILY Days = 30 Comments: Last Taken:07/15/17 Time:1314 Oxycodone HCl (Oxycodone HCl) 20 MG TABLET 1 Tablet ORAL EVERY SIX HOURS as needed for Chronic pain Qty = 20 Comments: Last Taken:07/15/17 Time:1019 This prescription has been renewed Start taking the following new medications: Folic Acid (Folic Acid) 1 MG TABLET 1 Tablet ORAL DAILY Qty = 30 No Refills Comments: Last Taken:07/15/17 Time:0746 Thiamine HCl (Vitamin B-1) 100 MG TABLET 1 Tablet ORAL DAILY Qty = 30 No Refills Comments: Last Taken:07/15/17 Time:0757 Multivitamin (One Daily Multivitamin) 1 EACH TABLET 1 Tablet ORAL DAILY Qty = 30 No Refills Comments: Last Taken:07/15/17 Time:0746 Copies To: Demetris Ordaz MD Attending MD Review Statement Documenting Attending: Keven Machado MD Other Findings: The patient was seen and discussed with house staff. Agree with the plan of care upon discharge. Patient to follow-up with PCP at [facility].
== END 2017-07-15 15:50 | DRG 897 ==
LOC: ERH 16:13 → 2NB 07-11 09:53 → ERHI 07-11 09:53 → ENRESERV 07-11 10:16 → ENTRNSPT 07-11 11:49 → EDTRNSPT 07-11 11:50 → EDTRNSPTSTS 07-11 11:50 → 2NB 07-11 11:59 → CMPTRNSPT 07-11 12:16 → 2NB 07-11 17:09
PROVIDERS: Emergency Medicine; Internal Medicine; Student in an Organized Health Care Education/Training Program
DX: F10.229 Alcohol dependence with intoxication, unspecified (principal); F11.23 Opioid dependence with withdrawal; K86.1 Other chronic pancreatitis; E11.9 Type 2 diabetes mellitus without complications; F31.9 Bipolar disorder, unspecified; T40.2X5A Adverse effect of other opioids, initial encounter; Y90.8 Blood alcohol level of 240 mg/100 ml or more; F43.12 Post-traumatic stress disorder, chronic; Z79.84 Long term (current) use of oral hypoglycemic drugs; I25.2 Old myocardial infarction; F41.9 Anxiety disorder, unspecified; Z88.8 Allergy status to other drugs, medicaments and biological substances; Z91.041 Radiographic dye allergy status; Z96.642 Presence of left artificial hip joint; K59.00 Constipation, unspecified; G89.29 Other chronic pain; I10 Essential (primary) hypertension; R45.1 Restlessness and agitation
CPT/HCPCS: 2NBP; 36592; 71045; 80307; 81001; 82436; 93005; 93010; 96372; 97161-GP; 97530-GO; 99232; G0480; J1650; J1885; J3490